=== PATIENT | female | born 1995 | race Caucasian/White ===

== ENCOUNTER 2018-11-10 21:53 | Emergency (ER) | payer OTHER ==
[~2018-11-10] VITALS: Ht 154.9 cm; Wt 51.7 kg
[~2018-11-10 21:53] MED LIST: SERT50TA PO; TOPI25CA12 PO
[2018-11-10] MEDS ORDERED: NS 1000ML 1,000 ML IV STA (22:18)
[2018-11-10] MEDS ORDERED: ZOFRAN IV STA (22:18)
--- NOTE | 2018-11-10 22:24 | ER.PDOC ---
General Chief Complaint: Requesting Medical Care Stated Complaint: N/V/D Time seen by MD: 22:22 Source: patient Exam Limitations: no limitations History of Present Illness Initial Comments Nausea/vomiting/diarrhea today. Severity/Quality: moderate Associated Symptoms (vomiting): freq vomitng Associated Symptoms (diarrhea): mild, watery Allergies: Coded Allergies: No Known Allergies (Unverified , 02/11/17) Home Meds Reported Medications Sertraline Hcl (ZOLOFT) 50 Mg Tablet, 50 MG PO DAILY, TABLET 02/11/17 Vital Signs First Vital Signs Date Time Temp Pulse Resp B/P (MAP) Pulse Ox O2 Delivery O2 Flow Rate FiO2 10/30/18 02:36 82 11/10/18 22:12 98.8 18 96 Room Air 98.8 11/10/18 22:41 101/76 (84) Last Vital Signs Date Time Temp Pulse Resp B/P (MAP) Pulse Ox O2 Delivery O2 Flow Rate FiO2 11/10/18 22:41 98.8 109 18 101/76 (84) 96 Room Air 98.8 Past Medical History Surgical History: no surgical history Social History Drug Use: none Constitutional: no symptoms reported EENTM: no symptoms reported Respiratory: no symptoms reported Cardiovascular: no symptoms reported Gastrointestinal: see HPI All Other Systems: Reviewed and Negative Physical Exam General Appearance: No Apparent Distress, WD/WN Neck: Non-Tender, Full Range of Motion, Supple, Normal Inspection Respiratory: chest non-tender, lungs clear, normal breath sounds, no respiratory distress, no accessory muscle use Cardiovascular: Normal Peripheral Pulses, Regular Rate, Rhythm, No Edema, No Gallop, No JVD, No Murmur Gastrointestinal: Normal Bowel Sounds, Non Tender, Soft Back: Normal Inspection, No CVA Tenderness, No Vertebral Tenderness Extremities: Normal Range of Motion, Non-Tender, Normal Inspection, No Pedal Edema, No Calf Tenderness, Normal Capillary Refill, Pelvis Stable 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, No Motor/Sensory Deficits, Alert, Normal Mood/Affect, Oriented x 3 Skin: Normal Color, Warm/Dry Results/Orders Results/Orders Laboratory Tests Test 11/10/18 21:53 11/10/18 22:30 11/10/18 22:45 Urine Collection Type CCMS Urine Color YELLOW (YELLOW) Urine Appearance CLOUDY (CLEAR) Urine Bilirubin NEGATIVE MG/DL (NEGATIVE) Urine Ketones 50 mg/dL (NEGATIVE) Urine Specific [place] 1.015 (1.005-1.035) Urine pH 6 (5.0-6.0) Urine Protein NEGATIVE (NEGATIVE) Urine Urobilinogen 1.0 (NEGATIVE) Urine Nitrate NEGATIVE (NEGATIVE) Urine Leukocyte Esterase 500/uL 2+ (NEGATIVE) Urine Blood 25 1+ (NEGATIVE) Urine RBC 0-2 RBC/HPF (NONE SEEN) Urine WBC 2-5 WBC/HPF (0-2) Urine Squamous Epithelial Cells MANY #/HPF (FEW) Urine Bacteria FEW (NONE SEEN) Urine Other MUCUS RARE #/HPF Urine Yeast RARE Urine Glucose NORMAL (NEGATIVE) Urine HCG, Qualitative NEGATIVE (NEGATIVE) Influenza Type A Antigen NEGATIVE (NEG) Influenza B Immunofluorescence NEGATIVE (NEG) White Blood Count 11.4 10^3/uL (4.5-11.0) Red Blood Count 4.75 10^6/uL (4.00-5.20) Hemoglobin 13.7 g/dL (12.0-15.0) Hematocrit 41.6 % (36.0-46.0) Mean Corpuscular Volume 87.6 fL (78-100) Mean Corpuscular Hemoglobin 28.8 pg (26-34) Mean Corpuscular Hemoglobin Concent 32.9 g/dL (33-37) Red Cell Distribution Width 13.0 % (11.5-14.5) Platelet Count 280 10^3/uL (150-400) Mean Platelet Volume 10.2 fL (7.8-11.0) Neutrophils (%) (Auto) 90.1 % (41.0-85.0) Lymphocytes (%) (Auto) 4.6 % (24.0-44.0) Monocytes (%) (Auto) 4.4 % (5.0-12.0) Neutrophils # (Auto) 10.3 10^3/uL (1.8-7.7) Lymphocytes # (Auto) 0.5 10^3/uL (1.0-4.8) Monocytes # (Auto) 0.5 10^3/uL (0.3-0.8) Absolute Immature Granulocyte (auto 0.03 10^3 u/L (0-2) Eosinophils % 0.4 % (0.0-5.0) Basophils % 0.2 % (0.0-0.2) Basophils # 0.0 10^3/uL (0.0-0.1) Eosinophil Count 0.1 10^3/uL (0.0-0.2) Sodium Level 141 mmol/L (132-145) Potassium Level 3.7 mmol/L (3.6-5.2) Chloride Level 103.0 mmol/L (96-109) Carbon Dioxide Level 25.5 mmol/L (20.0-32) Anion Gap 16.2 Blood Urea Nitrogen 18 mg/dL (7-18) Creatinine 0.90 mg/dL (0.59-1.40) Estimated GFR () 93.9 (>/=60) BUN/Creatinine Ratio 20.0 Glucose Level 114 mg/dL (70-110) Calcium Level 8.9 mg/dL (8.4-10.5) Total Bilirubin 0.5 mg/dL (0.2-1.0) Aspartate Amino Transf (AST/SGOT) 14 U/L (0-35) Alanine Aminotransferase (ALT/SGPT) 15 U/L (12-78) Alkaline Phosphatase 71 U/L (50-136) Total Protein 8.8 g/dL (6.4-8.2) Albumin 4.0 g/dL (3.4-5.0) Globulin 4.8 Lipase 112 U/L (114-286) Percent Immature Gran (Cell Imm) 0.30 % (0.00-0.50) Differential Total Cells Counted 100 #CELLS Segmented Neutrophils 87 % (31-76) Band Neutrophils 3 % (2-6) Lymphocytes 6 % (25-36) Monocytes 4 % (3-9) Administered Medications Medications (Trade) Dose Ordered Sig/Chanelle Route PRN Reason Start Time Stop Time Status Last Admin Dose Admin Sodium Chloride 1,000 ml @ 1,200 mls/hr Q50M STAT IV 11/10/18 22:18 11/10/18 23:07 DC 11/10/18 22:38 Ondansetron HCl (Zofran) 4 mg STAT STAT IV 11/10/18 22:18 11/10/18 22:19 DC 11/10/18 22:38 Progress Progress Patient feeling better after hydration. Departure Time of Disposition: 23:54 Disposition: 01 HOME, SELF-CARE Impression: Primary Impression: Gastroenteritis Additional Impression: UTI (urinary tract infection) Condition: Improved Referrals: HIEU GONZALEZ SOLUTION DESIGN AND ANALYSIS MANAGER (PCP) PRIMARY CARE PROVIDER Additional Instructions: Macrobid Phenergan Start feeding with clear liquids and advance diet as tolerated F/U with PCP in 2-3 days Duration or Time Spent with Pa: 60 mins Problem Qualifiers Additional Impression: UTI (urinary tract infection) Urinary tract infection type: site unspecified Hematuria presence: with hematuria Qualified Codes: N39.0 - Urinary tract infection, site not specified ; R31.9 - Hematuria, unspecified MASON BRITO MD Nov 10, 2018 22:24
[2018-11-10 22:25] LABS: APPEARANCE,URINE CLOUDY (CLEAR); BILIRUBIN,URINE NEGATIVE (NEGATIVE); UA COLOR YELLOW (YELLOW)
[2018-11-10 22:26] LABS: HCG URINE PREGNANCY NEGATIVE (NEGATIVE)
[2018-11-10] MEDS ORDERED: NS 1000ML 1,000 ML ONE (22:35)
[2018-11-10] MEDS ORDERED: ZOFRAN ONE (22:35)
[2018-11-10 22:38] LABS: BASOPHIL % 0.2 % (0.0-0.2); EOSINOPHIL # 0.1 10^3/uL (0.0-0.2); EOSINOPHIL % 0.4 % (0.0-5.0); HEMOGLOBIN 13.7 g/dL (12.0-15.0); LYMPHOCYTES # 0.5 10^3/uL (1.0-4.8); LYMPHOCYTES % 4.6 % (24.0-44.0); MEAN CELL HGB 28.8 pg (26-34); MEAN CELL HGB CONCENTRATION 32.9 g/dL (33-37); MEAN CORP VOLUME 87.6 fL (78-100); MEAN PLATELET VOLUME 10.2 fL (7.8-11.0); MONOCYTES # 0.5 10^3/uL (0.3-0.8); MONOCYTES % 4.4 % (5.0-12.0); NEUTROPHIL # 10.3 10^3/uL (1.8-7.7); NEUTROPHILS % 90.1 % (41.0-85.0); WHITE BLOOD CELL 11.4 10^3/uL (4.5-11.0)
[2018-11-10 22:38] LABS: YEAST,URINE RARE
[2018-11-10 22:41] VITALS: BP 101/76
[2018-11-10 22:56] LABS: CALCIUM 8.9 mg/dL (8.4-10.5); CARBON DIOXIDE 25.5 mmol/L (20.0-32)
[2018-11-10 23:09] LABS: BAND NEUTROPHILS 3 % (2-6); LYMPHOCYTE 6 % (25-36); MONOCYTE 4 % (3-9); SEGMENTED NEUTROPHILS 87 % (31-76)
[2018-11-10 23:46] VITALS: BP 94/59
[2018-11-10] MEDS ORDERED: PHENERGAN IV STA (23:55)
[2018-11-11] MEDS ORDERED: WATER 20 ML ONE (00:06)
[2018-11-11] MEDS ORDERED: PHENERGAN ONE (00:07)
[2018-11-11 00:17] VITALS: BP 98/41
--- NOTE | 2018-11-11 00:40 | NUR ---
IV IV REMOVED CATHETER WAS ALL INTACT. HELD PRESSURE AND NO FURTHER BLEEDING. APPLIED BAND AID.
[2018-11-11 01:12] VITALS: BP 98/41
== END 2018-11-11 00:45 | disposition home or self-care (01) ==
LOC: ER 21:53
DX: K52.9 Noninfective gastroenteritis and colitis, unspecified (principal); N39.0 Urinary tract infection, site not specified; R31.9 Hematuria, unspecified; Z79.899 Other long term (current) drug therapy
CPT/HCPCS: 36415; 80053; 81000; 81025; 83690; 85025; 86710 ×2; 87086; 96361; 96374; 96375; 99283; J2405; J2550; J7030; A4216

== ENCOUNTER 2019-09-14 15:19 | Emergency (ER) | payer OTHER ==
[~2019-09-14] VITALS: Ht 154.9 cm; Wt 52.2 kg
--- NOTE | 2019-09-14 15:49 | ER.PDOC ---
General Chief Complaint: Requesting Medical Care Stated Complaint: SORE THROAT,POSS UTI Time seen by MD: 15:42 Source: patient Exam Limitations: no limitations History of Present Illness Initial Comments c/o productive cough with burning chest pain, sore throat and urinary symptoms (burning, frequency, hematuria) Timing/Duration: constant, yesterday (urinary sx for 24 hours), week (cough/uri sx for >1 week) Severity/Quality: moderate Sexual [place] History: single partner () Associated Symptoms: dysuria, urinary frequency Prior symptoms/Treatment: Similar symptoms previous Allergies: Coded Allergies: No Known Allergies (Unverified , 02/11/17) Home Meds Reported Medications Sertraline Hcl (ZOLOFT) 50 Mg Tablet, 50 MG PO DAILY, TABLET 02/11/17 Past Medical History Medical History: no pertinent history Surgical History: no surgical history Family History Significant Family History: no pertinent family hx Social History Smoking: non-smoker Alcohol Use: none Drug Use: none Review of Systems Constitutional: no symptoms reported EENTM: no symptoms reported Respiratory: cough (productive of yellow/green sputum) Cardiovascular: no symptoms reported Gastrointestinal: no symptoms reported Genitourinary: burning, dysuria, frequency, hematuria Musculoskeletal: no symptoms reported Skin: no symptoms reported All Other Systems: Reviewed and Negative Physical Exam General Appearance: No Apparent Distress EENT: eyes nml inspection, nml ENT inspection, pharynx nml Cardiovascular/Respiratory: Regular Rate, Rhythm, No M/R/G Abdomen: Normal Bowel Sounds, Non Tender, Soft Extremities: Normal Range of Motion, Non-Tender, Normal Inspection, No Pedal Edema, No Calf Tenderness Skin: Normal Color, Warm/Dry Results/Orders Results/Orders Orders - ANILA QUIROZ DO Urinalysis (09/14/19 15:45) Hcg Urine (09/14/19 15:45) Urine Culture (09/14/19 15:50) Vital Signs Date Time Temp Pulse Resp B/P (MAP) Pulse Ox O2 Delivery O2 Flow Rate FiO2 09/14/19 15:58 98.5 75 18 99 Room Air 09/14/19 15:58 98.5 75 18 09/14/19 15:58 98.5 75 18 107/48 (67) 99 Room Air Laboratory Tests Test 09/14/19 15:50 Urine Collection Type UNKNOWN Urine Color STRAW (YELLOW) Urine Appearance HAZY (CLEAR) H Urine Bilirubin NEGATIVE MG/DL (NEGATIVE) Urine Ketones NEGATIVE (NEGATIVE) Urine Specific [place] 1.000 (1.005-1.035) Urine pH 6.5 (5.0-6.0) Urine Protein NEGATIVE (NEGATIVE) Urine Urobilinogen NORMAL (NEGATIVE) Urine Nitrate NEGATIVE (NEGATIVE) Urine Leukocyte Esterase 100/ul 1+ (NEGATIVE) Urine Blood 250 4+ (NEGATIVE) H Urine RBC 10-25 RBC/HPF (NONE SEEN) H Urine WBC TNTC WBC/HPF (0-2) H Urine Squamous Epithelial Cells MODERATE #/HPF (FEW) Urine Bacteria RARE (NONE SEEN) Urine Glucose NORMAL (NEGATIVE) Urine HCG, Qualitative NEGATIVE (NEGATIVE) Progress Progress UA positive for UTI; hcg negative Course Sepsis Screening Results: Posi: POSITIVE SEPSIS RISK Duration or Total Time Spent w: 60 mins Vitals & review Data Vital Sign - Last 24 Hours 09/14/19 09/14/19 09/14/19 15:58 15:58 15:58 Temp 98.5 98.5 98.5 Pulse 75 75 75 Resp 18 18 18 B/P (MAP) 107/48 (67) Pulse Ox 99 99 O2 Delivery Room Air Room Air Laboratory Tests Test 09/14/19 15:50 Urine Collection Type UNKNOWN Urine Color STRAW Urine Appearance HAZY Urine Bilirubin NEGATIVE MG/DL Urine Ketones NEGATIVE Urine Specific [place] 1.000 Urine pH 6.5 Urine Protein NEGATIVE Urine Urobilinogen NORMAL Urine Nitrate NEGATIVE Urine Leukocyte Esterase 100/ul 1+ Urine Blood 250 4+ Urine RBC 10-25 RBC/HPF Urine WBC TNTC WBC/HPF Urine Squamous Epithelial Cells MODERATE #/HPF Urine Bacteria RARE Urine Glucose NORMAL Urine HCG, Qualitative NEGATIVE Departure Time of Disposition: 16:12 Disposition: 01 HOME, SELF-CARE Impression: Primary Impression: UTI (urinary tract infection) Additional Impression: Bronchitis Condition: Stable Patient Instructions: Acute Bronchitis, Urinary Tract Infection Referrals: HIEU GONZALEZ ELECTRIC MOTOR WINDER (PCP) PRIMARY CARE PROVIDER Additional Instructions: Take antibiotics until all gone. Return to ER if symptoms worsen, fever > 101.4 develops, difficulty breathing, or for any other concerns. Duration or Time Spent with Pa: 30 minutes Return to Work/School Can a patient return to work?: Yes Problem Qualifiers Primary Impression: UTI (urinary tract infection) Urinary tract infection type: acute cystitis Hematuria presence: with hematuria Qualified Codes: N30.01 - Acute cystitis with hematuria ANILA QUIROZ DO Sep 14, 2019 15:49
[2019-09-14 15:56] LABS: BILIRUBIN,URINE NEGATIVE (NEGATIVE); UROBILINOGEN,URINE NORMAL (NEGATIVE)
[2019-09-14 15:57] LABS: APPEARANCE,URINE HAZY (CLEAR); UA COLOR STRAW (YELLOW)
[2019-09-14 15:58] VITALS: BP 107/48
== END 2019-09-14 16:26 | disposition home or self-care (01) ==
LOC: ER 15:19
DX: N30.01 Acute cystitis with hematuria (principal); J40 Bronchitis, not specified as acute or chronic; Z79.899 Other long term (current) drug therapy
CPT/HCPCS: 81000; 81025; 87077; 87086; 87186; 99284

== ENCOUNTER → 2021-02-23 | Outpatient (CLI) | payer OTHER ==
[2021-02-24 07:27] LABS: ESTRADIOL 87.9 pg/mL (.); TESTOSTERONE, TOTAL <3 ng/dL (8-48)
== END | disposition home or self-care (01) ==
LOC: LAB 13:34
PROVIDERS: ATTEND Nurse Practitioner Family
DX: F41.8 Other specified anxiety disorders (principal); R52 Pain, unspecified
CPT/HCPCS: 36415; 82670; 84144; 84403; 84550; 85651; 86038; 86140; 86225; 86235

== ENCOUNTER → 2021-04-13 | Outpatient (CLI) | payer OTHER ==
--- NOTE | 2021-04-13 15:31 | DIREP ---
PROCEDURE:US SOFT TISSUE ABDOMINAL WALL COMPARISON:None. INDICATIONS:K42.9 UMBILICAL HERNIA, VERY SMALL PALP 1CM SUPRAUMBILICAL X1MO TECHNIQUE:Sonography of the soft tissues of the supraumbilical region was performed using grayscale and color Doppler imaging. FINDINGS: MASSES:None. FLUID COLLECTIONS:None. OTHER:On the provided images there is a 3.7 cm area with bowel peristalsis and just below the anterior abdominal wall. The smooth contours favor diastasis although an umbilical hernia containing bowel would be of differential consideration. CONCLUSION: 1. Supraumbilical diastases. Dictated by: KHURRAMA Physician on 04/13/2021 at 02:01 PM ac
== END | disposition home or self-care (01) ==
LOC: RAD 08:27
PROVIDERS: ATTEND Nurse Practitioner Family
DX: M62.08 Separation of muscle (nontraumatic), other site (principal); K42.9 Umbilical hernia without obstruction or gangrene
CPT/HCPCS: 76705

== ENCOUNTER 2021-10-13 05:52 | Day surgery (SDC) | payer OTHER ==
[2021-10-11 09:33] VITALS: BP 105/69
[2021-10-11 10:00] LABS: BASOPHIL % 0.2 % (0.0-0.2); EOSINOPHIL # 0.1 10^3/uL (0.0-0.2); EOSINOPHIL % 0.8 % (0.0-5.0); LYMPHOCYTES # 1.65 10^3/uL1 (1.0-4.8); LYMPHOCYTES % 16.8 % (24.0-44.0); MEAN CORP HGB 27.9 pg (26-34); MONOCYTES # 0.7 10^3/uL (0.3-0.8); MONOCYTES % 6.9 % (5.0-12.0); NEUTROPHIL # 7.4 10^3/uL (1.8-7.7); NEUTROPHILS % 75.1 % (41.0-85.0); PLATELET COUNT 309 10^3/uL (150-400); RED CELL DISTRIBUTION WIDTH 13.5 % (11.5-14.5)
[2021-10-11 10:19] LABS: CARBON DIOXIDE 24.5 mmol/L (20.0-32)
[2021-10-13] VITALS (24 sets, daily range): BP systolic 89–118; BP diastolic 39–71
[~2021-10-13] VITALS: Ht 154.9 cm; Wt 57.2 kg
[~2021-10-13 05:52] MED LIST changes: +GABA100C7 PO; +HYDR200T5 PO; +INDO50CA15 PO; +LACTATED RINGERS 1,000 ML ONE
[2021-10-13] MEDS ORDERED: LACTATED RINGERS 1,000 ML IV SCH (06:00)
[2021-10-13] MEDS ORDERED: ATIVAN ONE (06:25)
[2021-10-13] MEDS ORDERED: TRANSDERM-SCOP TD ONE (06:25)
[2021-10-13] MEDS ORDERED: PEPCID IV ONE (06:26)
[2021-10-13] MEDS ORDERED: SENSORCAINE-MPF 0.25% VIAL ONE (06:27)
[2021-10-13] MEDS ORDERED: EPINEPHrine ONE (06:27)
[2021-10-13] MEDS ORDERED: DEXAMETHASONE 10 MG/ML VIAL ONE (06:27)
[2021-10-13] MEDS ORDERED: EXPAREL 266 MG/20 ML VIAL IJ ONE (06:28)
[2021-10-13] MEDS ORDERED: LACTATED RINGERS 1,000 ML ONE ×3 (06:34→10:38)
[2021-10-13] MEDS ORDERED: XYLOCAINE 2% 5ML VIAL ONE (06:34)
[2021-10-13] MEDS ORDERED: TORADOL ONE (06:34)
[2021-10-13] MEDS ORDERED: DECADRON ONE (06:35)
[2021-10-13] MEDS ORDERED: EPHEDRINE SULFATE ONE (06:35)
[2021-10-13] MEDS ORDERED: ROCURONIUM BROMIDE IV ONE (06:35)
[2021-10-13] MEDS ORDERED: BRIDION IV ONE (06:35)
[2021-10-13] MEDS ORDERED: ZOFRAN ONE (06:35)
[2021-10-13] MEDS ORDERED: DIPRIVAN IV ONE (06:36)
[2021-10-13] MEDS ORDERED: DILAUDID ONE (06:39)
[2021-10-13] MEDS ORDERED: TRANSDERM-SCOP TD STA (06:49)
[2021-10-13] MEDS ORDERED: ATIVAN IV STA (06:49)
[2021-10-13] MEDS ORDERED: PEPCID IV STA (06:49)
[2021-10-13] MEDS ORDERED: REGLAN IV SCH (07:00)
[2021-10-13] MEDS ORDERED: SODIUM CHLORIDE IRR BOTTLE IR ONE (07:31)
[2021-10-13] MEDS ORDERED: SODIUM CHLORIDE IRR BAG IR ONE (07:31)
[2021-10-13] MEDS ORDERED: ANCEF ONE (08:14)
[2021-10-13] MEDS ORDERED: NS 100ML 100 ML IV ONE (08:14)
[2021-10-13] MEDS ORDERED: VERSED ONE (08:25)
[2021-10-13] MEDS ORDERED: XYLOCAINE 1%-EPI 1:100,000 ONE (08:31)
[2021-10-13] MEDS ORDERED: ROMAZICON IV ONE (10:01)
[2021-10-13] MEDS ORDERED: NORCO 5MG PO ONE ×2 (11:00→11:17)
[2021-10-13] MEDS ORDERED: ZOFRAN IV ONE (12:00)
--- NOTE | 2021-10-27 13:36 | PRM.OPH ---
Immediate Post Op Report Immediate Post Op Report Imediate Post Op Report Date 10/13/2021 Preop diagnosis Incisional hernia Postoperative diagnosis Same Procedure Laparoscopic incisional hernia with mesh Surgeon Dr. Oates Anesthesia General EBL Minimal Specimens None Complications None Mesh Bard ventral light ST 4.5 inch round mesh BALDEV OATES MD Oct 27, 2021 13:36
--- NOTE | 2021-10-27 13:41 | PRM.OPH ---
OPERATIVE REPORT OPERATIVE REPORT 10/12/2021 Procedure Patient was initially seen and identified in the preoperative area. After confirming her identity, H&P, consents, making sure that all of her questions were answered the patient was transferred from the preop area to the operating theater. She was placed in supine position given general anesthesia, Hernández catheter placed, tap block placed by anesthesia. Her abdomen was prepped with ChloraPrep and sterile field created in standard fashion. An incision 2 fingers breath below the left costal margin on the lateral portion of the left upper quadrant was then made appropriate for Veress needle. The needle was inserted into the abdominal cavity and the abdomen was insufflated to 15 mmHg. The incision was then enlarged to a 12 mm size and using the [employer] system a 12 mm trocar was inserted into the abdominal cavity and we confirm there is no signs of any intra-abdominal injury. An additional 3 5 mm trochars were placed 1 2 fingers breaths above the anterior iliac spine and the left lower quadrant, 1 2 fingers breath above the anterior iliac spine on the right lower quadrant and 1 2 fingers breath below the right costal margin in the right upper quadrant. All of these were placed under direct visualization. After which time we are able to identify the defect and with some difficulty pull out the incarcerated fat in the hernia. Once this was completed and all the retained material was removed a small miles in the skin was then made. The 4 and half inch round ventral light ST mesh with the placement device was then placed into the abdominal cavity and using the Jay Jay Fuentes device through the small little stab incision in the center was then used to pull it up and hold it in place. Pressure was dropped to 10 mmHg and using a tacker it was tacked in place. The placement device was then removed and removed from the patient. The abdomen was reinsufflated any additional tacks. Necessary were placed. We confirm there was no signs of any bleeding. And then we went ahead and remove the 12 mm trocar site using the Jay Jay Fuentes device passed a 0 Vicryl suture across the incision catching the fascia in order to close it. Then the abdomen was deinsufflated the remaining trochars were removed and the skin was closed with 4-0 Monocryl and the small stab incision was also closed with 4-0 Monocryl. The abdomen was washed and dried and Dermabond placed over all 5 incisions. Patient was handed back to anesthesia to be awoken from general anesthesia, nursing to remove the Hernández catheter, and then patient to be transferred back to the PACU for further recovery. Patient tolerated the procedure well. BALDEV SERRANO MD Oct 27, 2021 13:41
== END 2021-10-13 14:06 | disposition home or self-care (01) ==
LOC: SDC 05:52
PROVIDERS: ATTEND Surgery
DX: K43.0 Incisional hernia with obstruction, without gangrene (principal); F41.9 Anxiety disorder, unspecified; F32.9 Major depressive disorder, single episode, unspecified; M19.90 Unspecified osteoarthritis, unspecified site; Z98.51 Tubal ligation status; Z98.890 Other specified postprocedural states; Z82.49 Family history of ischemic heart disease and other diseases of the circulatory system; Z82.0 Family history of epilepsy and other diseases of the nervous system; Z79.899 Other long term (current) drug therapy; Z79.01 Long term (current) use of anticoagulants
CPT/HCPCS: 36415; 49655; 64999; 76942; 80053; 84703; 85025; 85610; 85730; 88305; A4217; C1781; J0171; J0690; J1100 ×2; J1170; J1885; J2001; J2060; J2250; J2405; J3490 ×5; J7120 ×4; C9290

== ENCOUNTER 2022-01-21 14:40 | Emergency (ER) | payer OTHER ==
[~2022-01-21] VITALS: Ht 154.9 cm; Wt 53.1 kg
[~2022-01-21 14:40] MED LIST changes: -LACTATED RINGERS 1,000 ML ONE
[2022-01-21 14:59] VITALS: BP 131/68
--- NOTE | 2022-01-21 15:04 | NUR ---
ARRIVAL PATIENT ARRIVED TO ED8 AMBULATORY, C/O ABDOMEN PAIN FOR THE PAST 3-4 DAYS, DENIES TAKING ANY MEDICATIONS WAITER/WAITRESS COUNTER, CAME TO THE ED FOR EVAL, DOCTOR NOTIFIED OF PATIENT'S ARRIVAL.
--- NOTE | 2022-01-21 15:12 | ER.PDOC ---
General Chief Complaint: Abdomen Pain Stated Complaint: ABD PAIN Time seen by MD: 15:00 Source: patient Exam Limitations: no limitations History of Present Illness Timing/Duration: other (3 days ) Severity/Quality: mild Radiation: no radiation Associated Symptoms: denies symptoms Exacerbated by: supine Relieved By: supine Allergies: Coded Allergies: kiwi (Verified Allergy, Severe, THROAT SWELLS SHUT, DIFFICULTY BREATHING, 10/11/21) Home Meds Reported Medications Hydroxychloroquine Sulfate (HYDROXYCHLOROQUINE SULFATE) 200 Mg Tablet, 1 TAB PO BID, #180 TAB 1 Refill 10/11/21 Gabapentin (GABAPENTIN) 100 Mg Capsule, 3 CAP PO BID, #90 CAP 2 Refills 10/11/21 Indomethacin (INDOMETHACIN) 50 Mg Capsule, 1 CAP PO BID for arthritis for 10 Days, #30 CAP 0 Refills with food 10/11/21 Sertraline Hcl (ZOLOFT) 50 Mg Tablet, 50 MG PO DAILY PRN for DEPRESSION, TABLET 02/11/17 Vital Signs First Vital Signs Date Time Temp Pulse Resp B/P (MAP) Pulse Ox O2 Delivery O2 Flow Rate FiO2 01/21/22 14:59 98.2 89 18 98 01/21/22 14:59 131/68 (89) Room Air Last Vital Signs Date Time Temp Pulse Resp B/P (MAP) Pulse Ox O2 Delivery O2 Flow Rate FiO2 01/21/22 16:05 98.2 88 18 109/58 (75) 98 Room Air Past Medical History Medical History: fibromyalgia Surgical History: tubal, other Social History Alcohol Use: none Drug Use: none All Other Systems: Reviewed and Negative Physical Exam General Appearance: No Apparent Distress, WD/WN HEENT: PERRL/EOMI, Normal ENT Inspection, TMs Normal, Pharynx Normal Neck: Non-Tender, Full Range of Motion, Supple, Normal Inspection Respiratory: chest non-tender, lungs clear, normal breath sounds, no respiratory distress, no accessory muscle use Cardiovascular: Normal Peripheral Pulses, Regular Rate, Rhythm, No Edema, No Ga llop, No JVD, No Murmur Gastrointestinal: Normal Bowel Sounds, Non Tender, Soft Pelvic: Normal External Exam, Normal Adnexa, No Cerv. 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, No Motor/Sensory Deficits, Alert, Normal Mood/Affect, Oriented x 3 Skin: Normal Color, Warm/Dry Lymphatic: No Adenopathy Results/Orders Results/Orders Orders - YVETTE SHEIKH MD Cbc With Auto Diff (01/21/22 15:04) Comprehensive Metabolic Panel (01/21/22 15:04) Lipase (01/21/22 15:04) Urinalysis (01/21/22 15:04) Hcg Urine (01/21/22 15:04) Urine Culture (01/21/22 16:21) Vital Signs Date Time Temp Pulse Resp B/P (MAP) Pulse Ox O2 Delivery O2 Flow Rate FiO2 01/21/22 16:05 98.2 88 18 109/58 (75) 98 Room Air 01/21/22 14:59 98.2 89 18 01/21/22 14:59 98.2 89 18 131/68 (89) 98 Room Air 01/21/22 14:59 98.2 89 18 98 Laboratory Tests Test 01/21/22 15:19 01/21/22 16:21 White Blood Count 6.1 10^3/uL (4.5-11.0) Red Blood Count 4.52 10^6/uL (4.00-5.20) Hemoglobin 12.8 g/dL (12.0-15.0) Hematocrit 40.0 % (36.0-46.0) Mean Corpuscular Volume 88.5 fL (78-100) Mean Corpuscular Hemoglobin 28.3 pg (26-34) Mean Corpuscular Hemoglobin Concent 32.0 g/dL (33-36.5) L Red Cell Distribution Width 13.3 % (11.5-14.5) Platelet Count 350 10^3/uL (150-400) Mean Platelet Volume 10.3 fL (7.8-11.0) Neutrophils (%) (Auto) 79.3 % (41.0-85.0) Lymphocytes (%) (Auto) 15.7 % (24.0-44.0) L Monocytes (%) (Auto) 4.1 % (5.0-12.0) L Neutrophils # (Auto) 4.9 10^3/uL (1.8-7.7) Lymphocytes # (Auto) 0.96 10^3/uL1 (1.0-4.8) L Monocytes # (Auto) 0.3 10^3/uL (0.3-0.8) Absolute Immature Granulocyte (auto 0.01 10^3 u/L (0-2) Absolute Eosinophils (auto) 0.0 10^3/uL (0.0-0.2) Immature Granulocytes % 0.20 % (0.00-0.50) Eosinophils % 0.2 % (0.0-5.0) Basophils % 0.5 % (0.0-0.2) H Basophils # 0.0 10^3/uL (0.0-0.1) Sodium Level 139 mmol/L (132-145) Potassium Level 4.2 mmol/L (3.6-5.2) Chloride Level 106.0 mmol/L (96-109) Carbon Dioxide Level 22.0 mmol/L (20.0-32) Anion Gap 15.2 Blood Urea Nitrogen 14 mg/dL (7-18) Creatinine 0.90 mg/dL (0.59-1.40) Estimated GFR () 91.6 (>/=60) Est GFR (CKD-EPI)(Non-Afr [place]) 75.7 (>/=60) BUN/Creatinine Ratio 15.0 Glucose Level 144 mg/dL (70-110) H Calcium Level 8.9 mg/dL (8.4-10.5) Total Bilirubin 0.3 mg/dL (0.2-1.0) Aspartate Amino Transferase (AST) 14 U/L (0-35) Alanine Aminotransferase (ALT) 17 U/L (12-78) Alkaline Phosphatase 76 U/L (50-136) Total Protein 8.2 g/dL (6.4-8.2) Albumin 3.8 g/dL (3.4-5.0) Globulin 4.4 Albumin/Globulin Ratio 0.863 Lipase 107 U/L (114-286) L Urine Collection Type RANDOM Urine Color YELLOW Urine Appearance CLEAR Urine Bilirubin NEGATIVE (NEGATIVE) Urine Ketones NEGATIVE (NEGATIVE) Urine Specific [place] 1.020 (1.005-1.030) Urine pH 7.5 (4.5-8.0) Urine Protein NEGATIVE (NEGATIVE) Urine Urobilinogen 0.2 E.U./dL (0.2) Urine Nitrate NEGATIVE (NEGATIVE) Urine Leukocyte Esterase NEGATIVE (NEGATIVE) Urine Glucose (Auto)(UA) NEGATIVE (NEGATIVE) Urine Blood TRACE-INTACT (NEGATIVE) H Urine RBC 0-2 RBC/HPF (NONE SEEN) Urine WBC 0-2 WBC/HPF (0-2) Urine Squamous Epithelial Cells FEW (<=FEW) Urine Bacteria FEW (NONE SEEN) H Urine HCG, Qualitative NEGATIVE (NEGATIVE) Progress Progress labs stable. pt did not want pain meds in the ER. discussed CT scan. pt is comfortable with conservative care and will return in 24 hours if RLQ pain and appy signs start. expressed the improtance of watching for fever and worsening pain for signs of appy. understands warning and will follow up. states that she has appointment on Monday with pcp ER DEPART Departure Time of Disposition: 16:10 Disposition: 01 HOME / SELF CARE / HOMELESS Impression: Primary Impression: Abdominal pain Condition: Stable Patient Instructions: Abdominal Pain Referrals: LYRIC BOLANOS BANJO REPAIRER (PCP) PRIMARY CARE PROVIDER Duration or Time Spent with Pa: 15 YVETTE SHEIKH MD Jan 21, 2022 15:12
[2022-01-21 15:26] LABS: BASOPHIL % 0.5 % (0.0-0.2); EOSINOPHIL % 0.2 % (0.0-5.0); LYMPHOCYTES # 0.96 10^3/uL1 (1.0-4.8); LYMPHOCYTES % 15.7 % (24.0-44.0); MEAN CORP HGB 28.3 pg (26-34); MONOCYTES # 0.3 10^3/uL (0.3-0.8); MONOCYTES % 4.1 % (5.0-12.0); NEUTROPHIL # 4.9 10^3/uL (1.8-7.7); NEUTROPHILS % 79.3 % (41.0-85.0); PLATELET COUNT 350 10^3/uL (150-400); RED CELL DISTRIBUTION WIDTH 13.3 % (11.5-14.5)
[2022-01-21 16:05] VITALS: BP 109/58
[2022-01-21 16:34] LABS: BILIRUBIN,URINE NEGATIVE (NEGATIVE); UROBILINOGEN,URINE 0.2 E.U./dL (0.2)
== END 2022-01-21 16:18 | disposition home or self-care (01) ==
LOC: ER 14:40
DX: R10.31 Right lower quadrant pain (principal)
CPT/HCPCS: 36415; 80053; 81001; 81025; 83690; 85025; 87086; 99283